=== PATIENT | male | born 1985 | race African-American/Black ===

== ENCOUNTER 2017-01-13 21:46 | Emergency (ER) | payer BC ==
[~2017-01-13] VITALS: Ht 175.3 cm; Wt 140.0 kg
[2017-01-13 21:50] VITALS: BP 150/86; PULSE 88; RESP 15; TEMP 98.7; O2SAT 95
[2017-01-13] MEDS ORDERED: CLIN150 PO (23:06)
[2017-01-13] MEDS ORDERED: CLINDAMYCIN PHOS 600 MG/4 ML VIAL IM ONE (23:15)
--- NOTE | 2017-01-13 23:16 | PD ---
HPI Chief Complaint: Skin Problem Time Seen by Provider: 23:10 Travel History International Travel<30 days: No Contact w/Intl Traveler<30days: No Traveled to known affect area: No History of Present Illness HPI 31-year-old [id number] black male presents to emergency Department with complaints of warmth and tenderness to his right elbow. He states that 2 days ago he noticed a small pimple on his elbow. 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 Since then he has noticed some increasing pain, and warmth in his elbow. He is here visiting from [facility] for a anglican revival. He was instructed by one of the nurses with them to come to the ER. He is up-to-date with immunizations. He denies diabetes, fever, chills. Pain is mild. PFSH Past Medical History Medical History: Denies Significant Hx Tetanus Vaccination: < 5 Years Past Surgical History Surgical History: No Previous Surgery Social History Alcohol Use: No Tobacco Use: No Allergies-Medications (Allergen,Severity, Reaction): Coded Allergies: No Known Allergies (Unverified , 01/13/17) Reported Meds & Prescriptions Reported Meds & Active Scripts Active Cleocin (Clindamycin HCl) 150 Mg Cap 300 Mg PO Q6H Review of Systems Except as stated in HPI: all other systems reviewed are Neg Physical Exam Narrative GENERAL: This is a well-nourished, well-developed patient, in no apparent distress. SKIN: No rashes, ecchymoses or lesions. Warm and dry. HEAD: Atraumatic. Normocephalic. EYES: PERRL, EOMI, no discharge or injection. No scleral icterus. EARS: Clear NOSE: Nasal turbinates appear normal. THROAT: Mucosa pink and moist. Airway patent. NECK: Trachea midline. supple, moves head freely. LUNGS: Clear to auscultation. CV: Regular in rhythm. ABDOMEN: Soft nontender. EXT: No clubbing cyanosis. Examination the right upper extremity reveals a small pustule over the tip of the olecranon. There is some surrounding warmth with minimal erythema. Minimal edema. The patient is able to extend and flex his arm freely. He has good distal pulses. No evidence of lymphangitis or deep abscess. Data Data Last Documented VS Vital Signs Date Time Temp Pulse Resp B/P Pulse Ox O2 Delivery O2 Flow Rate FiO2 01/13/17 21:50 98.7 88 15 150/86 95 Room Air Orders Clindamycin Inj (Cleocin Inj) (01/13/17 23:15) Wound Culture And Gram Stain (01/13/17 23:05) MDM Medical Decision Making Medical Screen Exam Complete: Yes Emergency Medical Condition: Yes Medical Record Reviewed: Yes Differential Diagnosis MDM: High Differential diagnoses: Abscess, folliculitis, cellulitis, lymphangitis, abrasion, contact dermatitis, olecranon bursitis, infectious olecranon bursitis Narrative Course The area is unroofed with a 18-gauge needle and a culture is obtained. Patient' s given clindamycin 600 mg IM. He is instructed to have this rechecked again on Wednesday. "2 days". The patient also was advised to if he is not having improvement he needs to follow-up with his doctor or the emergency department at [facility] that this may require intravenous antibiotic and possible admission does not start to improve. This is infectious olecranon bursitis Diagnosis Primary Impression: infectious olecranon bursitis Patient Instructions: General Instructions Additional Instructions: Rest. Elevation. keep clean and dry. Warm compresses. Daily wound care with soap, water and Neosporin. Three Advil every 6 hours. Clindamycin. Follow-up with 48 hours. Consider follow up with your doctor or in the ER back: [place] if symptoms do not start to improve within 24 hours.. Return to the ER for any problems. Med/Other Pt SpecificInfo: Prescription(s) given, Wound Care Scripts Clindamycin (Cleocin)150 Mg [id number] Mg PO Q6H #80 CAP Prov:Yodit Gonzalez MD 01/13/17 Disposition: 01 DISCHARGE HOME Condition: Stable Newton Pereyra Jan 13, 2017 23:16
== END 2017-01-14 00:14 | disposition home or self-care (01) ==
LOC: NEPB 21:46
DX: M71.121 Other infective bursitis, right elbow (principal); B95.62 Methicillin resistant Staphylococcus aureus infection as the cause of diseases classified elsewhere
CPT/HCPCS: 10140; 86403; 87070; 87186; 87205; 96372